=== PATIENT | male | born 1970 | race Caucasian/White ===

== ENCOUNTER → 2021-08-20 08:13 | Outpatient (CLI) | payer OTHER, SELFPAY ==
--- NOTE | 2021-08-20 09:02 | XR_ITS ---
PROCEDURE INFORMATION: Exam: XR Chest Exam date and time: 08/20/2021 9:02 AM Age: 50 years old Clinical indication: Pre-operative exam; Respiratory screening exam; Additional info: Pre-op TECHNIQUE: Imaging protocol: XR of the chest. Views: 2 views. COMPARISON: No relevant prior studies available. FINDINGS: Lungs: Unremarkable. No consolidation. Pleural spaces: Unremarkable. No pleural effusion. No pneumothorax. Heart/Mediastinum: Unremarkable. No cardiomegaly. Bones/joints: Unremarkable. IMPRESSION: No acute findings.
[2021-08-20 09:23] LABS: Basophils # 0.1 K/mm3 (0-0.2); Basophils % 1.8 % (0.1-2.0); Eosinophils # 0.1 K/mm3 (0.0-0.4); Eosinophils % 1.8 % (0.1-12.0); Hematocrit 51.1 % (42.0-52.0); Hemoglobin 17.3 g/dL (14.1-18.0); Lymphocytes # 1.6 K/mm3 (0.7-4.5); Lymphocytes % 32.9 % (10-50); Mean Corpuscular HGB Conc 33.8 g/dL (31.8-35.4); Mean Corpuscular Hemoglobin 30.6 pg (27.0-31.2); Mean Corpuscular Volume 90.5 fl (80-94); Mean Platelet Volume 9.7 fl (7.4-10.4); Monocytes # 0.4 K/mm3 (0.1-1.0); Monocytes % 8.6 % (1.7-9.3); Neutrophils # 2.6 K/mm3 (1.8-7.8); Platelet Count 205 K/mm3 (142-424); Red Blood Count 5.64 M/mm3 (4.60-6.20); Red Cell Distribution Width 13.7 % (11.5-17.5); White Blood Count 4.8 K/mm3 (4.8-10.8)
[2021-08-20 11:11] LABS: Alanine Aminotransferase 58 U/L (12-78); Albumin Level 4.6 g/dl (3.5-5.0); Albumin/Globulin Ratio 1.5 (1.1-1.8); Alkaline Phosphatase 62 U/L (38-126); Anion Gap 12.7 mEq/L (5-15); Aspartate Amino Transferase 45 U/L (17-59); Bilirubin,Total 0.7 mg/dl (0.2-1.3); Blood Urea Nitrogen 18 mg/dl (9-20); Calcium 9.6 mg/dl (8.4-10.2); Carbon Dioxide 27 mmol/L (22.0-30.0); Chloride 103 mmol/L (98-107); Chol/HDL Ratio 5.8 (1-3.5); Cholesterol 192 mg/dl (140-200); Estimated Glomerular Filt Rate 80 ml/min (>60); GFR (African American) 97 ML/MIN (>60); Glucose 93 mg/dl (74-100); HDL Cholesterol 33 mg/dl (40-60); Phosphorous 3.7 mg/dl (2.5-4.5); Potassium 4.7 mmoL/L (3.5-5.1); Sodium 138 mmol/L (136-145); Total Protein,Serum 7.6 g/dl (6.3-8.2); Triglycerides 166 mg/dl (30-150); VLDL Cholesterol 33 mg/dL (0-40)
[2021-08-20 11:28] LABS: 25-OH Vitamin D, Total 22.8 ng/mL (30-100)
[2021-08-20 12:47] LABS: Folate 8.94 ng/mL; Iron 101 ug/dL (49-181)
[2021-08-20 12:58] LABS: Direct LDL Cholesterol 121.75 mg/dL (100-129)
[2021-08-20 13:19] LABS: Thyroid Stimulating Hormone 0.41 uIU/mL (0.465-4.68)
[2021-08-20 13:23] LABS: Ferritin 36.9 ng/ml (17.9-464)
[2021-08-20 13:40] LABS: Intact Parathyroid Hormone 76.2 pg/mL (7.5-53.5)
[2021-08-20 14:38] LABS: Hemoglobin A1C 5.6 % (4.0-6.0)
[2021-08-22 13:21] LABS: Prealbumin 28 mg/dL (12-34)
[2021-08-26 11:13] LABS: Methylmalonic Acid 203 nmol/L (0-378)
== END ==
PROVIDERS: PCP Family Medicine; Visit Provider Nurse Practitioner Family
DX: E66.01 Morbid (severe) obesity due to excess calories (principal)
CPT/HCPCS: 36415; 71046; 80053; 80061; 82131; 82306; 82728; 82746; 83036; 83540; 83735; 83970; 84100; 84134; 84425; 84443; 84446; 84590; 85025

== ENCOUNTER → 2021-08-22 17:30 | Outpatient (CLI) | payer OTHER, SELFPAY ==
[2021-08-30 18:54] LABS: Vitamin B1 156.8 nmol/L (66.5-200.0)
== END ==
PROVIDERS: Visit Provider Nurse Practitioner Family
DX: E66.01 Morbid (severe) obesity due to excess calories (principal); Z68.42 Body mass index [BMI] 45.0-49.9, adult
CPT/HCPCS: 36415; 84425